=== PATIENT | female | born 1980 | race Hispanic/Latino ===

== ENCOUNTER 2021-08-27 16:24 | Emergency (ER) | payer OTHER, SELFPAY ==
--- NOTE | ~2021-08-27 | CT_ITS ---
EXAMINATION: CT brain wo con EXAM DATE: 08/27/2021 17:06 INDICATION: Right facial tingling TECHNIQUE: Spiral CT of the head was performed without contrast. Axial, coronal and sagittal images were reviewed. The dose-length product (DLP) for this examination was 605.33 mGy-cm. The exposure w as tailored according to patient size, and iterative reconstruction (ASIR) was used as additional dos e reduction technique. There is no prior study for comparison. FINDINGS: There is no acute intraparenchymal hemorrhage. No evidence of intraparenchymal brain mass lesion. No evidence of acute infarction. There is no mass effect or midline shift. The ventricles are normal in size. There are no extra-axial collections. There are no acute calvarial fractures. T he orbits are unremarkable. Soft tissue is unremarkable. The visualized sinuses and mastoid air kristy ls are well aerated. IMPRESSION: 1. No acute intracranial findings. Reviewed, dictated and finalized at location .
[2021-08-27 16:28] VITALS: BP 143/66; PULSE 81; RESP 16; TEMP 36.8; O2SAT 100
[2021-08-27 17:02] LABS: Basophils Percent Auto 0.4 % (0.2-1.2); Eosinophils Absolute Auto 0.1 K/mm3 (0-0.3); Eosinophils Percent Auto 1.6 % (0-4.4); Hematocrit 39.2 % (37.0-47.0); Hemoglobin 12.8 g/dL (12.0-15.0); Immature Granulocyte Absolute 0.03 K/mm3 (0.00-0.031); Immature Granulocyte Percent A 0.4 % (0-0.5); Lymphocytes Absolute Auto 2.09 K/mm3 (0.9-3.2); Lymphocytes Percent Auto 30.5 % (18.3-44.2); Mean Corpuscular HGB Conc 32.7 g/dl (32-36); Mean Corpuscular Hemoglobin 32.1 pg (26-34); Mean Corpuscular Volume 98.2 fl (80-100); Mean Platelet Volume 10.4 fl (7.4-10.4); Monocytes Absolute Auto 0.6 K/mm3 (0.1-0.6); Monocytes Percent Auto 8.3 % (2.6-8.5); Neutrophils Percent Auto 58.8 % (45.5-73.1); Platelet Count Result 204 k/mm3 (150-375); Red Blood Count 3.99 M/mm3 (4.2-5.4); Red Cell Distribution Width 12.8 % (11.5-14.5); White Blood Count 6.9 K/mm3 (4.5-10.0)
[2021-08-27 17:48] LABS: Alanine Aminotransferase 11 U/L (4-35); Albumin Level 4.4 g/dL (3.5-5.1); Alkaline Phosphatase 42 U/L (38-126); Anion Gap 5 mmol/L (8-16); Aspartate Amino Transferase 26 U/L (14-36); Bilirubin,Total 0.8 mg/dL (0.2-1.3); Blood Urea Nitrogen 11 mg/dL (7-17); Carbon Dioxide 27 mmol/L (22-30); Chloride 103 mmol/L (98-107); Estimated CRCL calculation 113 ml/min; Estimated Glomerular Filt Rate > 60; Glucose 105 mg/dL (65-110); Sodium 135 mmol/L (137-145)
[2021-08-27 17:49] LABS: Potassium 3.6 mmol/L (3.4-5.0)
--- NOTE | 2021-08-27 18:14 | ED.GENADULT ---
HPI - General Adult General Chief complaint: Unspecified Stated complaint: neuro symptoms Time Seen by Provider: 08/27/21 16:32 Source: patient Mode of arrival: ambulatory Limitations: no limitations History of Present Illness HPI narrative: 40-year-old female presented to the emergency department for evaluation of multiple complaints. Patient states yesterday she had an episode that was short-lived where she had bilateral facial tingling that also felt like her gums were tingling . Patient denied any associated numbness or facial droop. Patient denied any speech changes or other focal numbness or weakness. Patient states that symptoms were very short lasting but did not give an exact time. Patient states today she has had episodes where she felt like her arms and legs were being pinched from the inside . Patient denies any associated numbness or weakness with these. Patient denies any associated muscle spasm or fasciculations. Patient denies any prior cardiac history for herself. Patient has no prior CVA history. Patient is not taking any medications. Denies taking any new supplements. No prior history of underlying bleeding disorder. Patient feels that her symptoms have improved at this time. Related Data Home Medications Medication Instructions Recorded Confirmed No Home Medications 08/27/21 08/27/21 Allergies Allergy/AdvReac Type Severity Reaction Status Date / Time No Known Allergies Allergy Verified 08/27/21 16:34 Review of Systems Review of Systems: CONSTITUTIONAL: Denies fever, chills, or sweats. EYES: Denies visual changes, redness, or discharge. ENT: Denies rhinorrhea, congestion, sore throat, or otalgia. CARDIOVASCULAR: Denies chest pain, palpitations, or edema. RESPIRATORY: Denies cough or dyspnea. GASTROINTESTINAL: Denies abdominal pain, nausea, vomiting, or diarrhea. GENITOURINARY: Denies dysuria or hematuria. SKIN: Denies rash or itching. MUSCULOSKELETAL: Denies back pain, joint pain, or myalgia. NEUROLOGIC: Denies headache, numbness, or weakness. Bilateral facial tingling PSYCHIATRIC: Denies anxiety or depression. All systems reviewed & are unremarkable except as noted in HPI and below Exam Narrative: APPEARANCE: Well appearing, no pain, no distress, well-nourished. HEAD: normocephalic, atraumatic. EYES: PERRLA/EOMI, conjunctivae clear. NOSE: Normal no drainage NECK: Supple. No adenopathy, no masses. RESPIRATORY: Airway patent, respirations nonlabored. Clear to auscultation bilaterally, no rales, rhonchi, wheezing. CARDIOVASCULAR: Regular rate and rhythm without murmurs rubs or gallops. ABDOMINAL: Soft, nontender, nondistended, normal bowel sounds MUSCULOSKELETAL: Moves all extremities. Strength/ROM intact, No edema, No calf tenderness. NEURO: Alert. Cranial nerves II through XII intact. Good gait. Good coordination. Sensation intact. Normal Romberg. Normal forward and backward tandem gait. No ataxia, no pronator drift. SKIN: Warm, dry. Normal Color Course Course Emergency Course: Initial symptoms were bilateral and did not involve numbness or weakness. Low concern for TIA. Patient has no history of atrial fibrillation, no cardiac history, no history of hypertension or high cholesterol. Patient reported tingling but has denied any focal neuro changes. Unsure of what the underlying etiology of the symptom of feeling pinched from the inside is but patient has a normal electrolyte work-up. No evidence of fasciculation on exam. Patient was updated on the results of her labs and imaging. All questions and concerns were addressed. Patient was encouraged to have close follow-up with her primary care physician. She was also educated on reasons to return to the emergency department. Patient was comfortable with the plan for discharge and follow-up. Vital Signs Vital signs: Vital Signs Temperature 98.3 F 08/27/21 16:28 Pulse Rate 81 08/27/21 16:28 Respiratory Rate 16 08/27/21 1
[2021-08-27 18:46] VITALS: BP 114/71; PULSE 63; RESP 16; O2SAT 100
== END 2021-08-27 18:47 | disposition home or self-care (01) ==
PROVIDERS: Emergency Provider Emergency Medicine
DX: R20.2 Paresthesia of skin (principal)
CPT/HCPCS: 36415; 70450; 80053; 85025; 99284

== ENCOUNTER 2021-10-10 06:40 | Outpatient (CLI) | payer OTHER, SELFPAY ==
--- NOTE | ~2021-10-10 | XR_ITS ---
XR hip LT min 2V DATE: 10/10/2021 07:06 INDICATION: Left hip pain for 2 or 3 weeks TECHNIQUE: AP and lateral views COMPARISON: None FINDINGS: No fracture or dislocation, avascular necrosis or bone destruction. Left hip joint space is well preserved. The pubic symphysis and left sacroiliac joint are intact. IMPRESSION: Negative Reviewed, dictated and finalized at location B. IMPRESSION: Negative
== END 2021-10-10 06:41 | disposition home or self-care (01) ==
LOC: ANHIMG 06:44
PROVIDERS: PCP Physician Assistant; Visit Provider Physician Assistant
DX: M25.552 Pain in left hip (principal)
CPT/HCPCS: 73502

== ENCOUNTER 2021-11-30 15:30 | Outpatient (RCR) | payer OTHER, SELFPAY ==
--- NOTE | 2021-10-26 09:02 | PTOPEVAL ---
PHYSICAL THERAPY INITIAL EVALUATION. Thank you for referring Shreya Corey to [facility].? The patient is scheduled to be seen for therapy? 1x/week for 5 weeks. Please review, sign, date and return this plan of care [place]. I agree with and certify that the following plan of care is medically necessary. Referring Physician Date Attending Provider: Trudi Eller, PA *PT Outpatient Evaluation Start: 10/26/21 Evaluation Information Diagnosis L Hip pain Onset 1 year Subjective Information Pt states initially her hip Query Text:As Reported By Patient/ did not hurt, it was just Family popping. She went to the chiropractor and they were able to stop the popping. Pt states she then felt a bump on the outside of her hip which prompted her to go to the doctor. She states the doctor was not concerned about the bump, it has since been growing still. Pt states work has become more difficult due to the pain in her whole hip. Pt states she can be on her feet for about 4 hours before it really starts to hurt. Pt has been avoiding stairs due to pain. Pain Assessment Self Report Pain Assessment Left Hip(s) Reported Pain Level 2 Pain Description Radiating,Sharp Pain Frequency Acute,Intermittent Lowest Pain Intensity 2 Greatest Pain Intensity 9 Pain Aggravating Factors Bending,Exercise/Activity, Lifting,Stair Climbing,Walking Lower Extremity Range of Motion General Lower Extremity Range of Motion WFL/Left,WFL/Right Gross Lower Extremity Range of Motion Pain free ROM Comments limited hip ext rot yamileth Lower Extremity Muscle Strength Testing Gross Lower Extremity Strength B hip flexion, knee extension, knee flexion grossly 5/5 B glute med 4/5 - increased knee valgus during functional squat Muscle Length Testing Muscle Length Testing Two-Joint Hip Flexor Shortened Muscles Short (R) Iliopsoas,Short (L) Iliopsoas Right Prone Hip Internal Rotator Length 60 Left Prone Hip Internal Rotator Length ( 30 Right Prone Hip External Rotator Length 15 Left Prone Hip External Rotator Length ( 30 Left Hamstring
--- NOTE | 2021-11-09 08:25 | PCPTNOTE ---
Patient called & cancelled scheduled appointment this date due to running late with children and won't be able to make it on time to appointment.
--- NOTE | 2021-11-30 16:03 | PTOPEVAL ---
PHYSICAL THERAPY PROGRESS REPORT AND DISCHARGE SUMMARY. Thank you for referring Shreya Corey to [facility].? The patient is to be discharged from skilled therapy services at this time. Please review, sign, date and return this plan of care [place]. I agree with and certify that the following plan of care is medically necessary. Referring Physician Date Attending Provider: Trudi Eller, PA Evaluation Information Diagnosis L Hip pain Onset 1 year Subjective Information Pt states her pain has been Query Text:As Reported By Patient/ progressively getting better Family since her first visit. She states now she has no pain at all and can complete all of her daily tasks without pain. She reports high pain ratings but it is manageable and she is able to easily work through it. Pt states there is not one single activity that increases her pain, it is just the long days on her feet. Pain Assessment Self Report Pain Assessment Left Hip(s) Reported Pain Level 0 Greatest Pain Intensity 7 Lower Extremity Range of Motion General Lower Extremity Range of Motion WFL/Left,WFL/Right Gross Lower Extremity Range of Motion Pain free ROM Lower Extremity Muscle Strength Testing Gross Lower Extremity Strength B hip flexion, knee extension, knee flexion grossly 5/5 B glute med 4+/5 B hip extension 4/5 Muscle Length Testing Two-Joint Hip Flexor Shortened Muscles Short (R) Iliopsoas,Short (L) Iliopsoas Right Prone Hip Internal Rotator Length 60 Left Prone Hip Internal Rotator Length ( 45 Right Prone Hip External Rotator Length 30 Left Prone Hip External Rotator Length ( 45 Left Hamstring Length -25 Right Hamstring Length -35 Posture Posture Evaluation View Anterior Head/C-Spine Posture Neutral Position Thoracic Spine Posture Neutral Lumbar Spine Posture Neutral Hip Posture (L) Neutral,(R) Neutral Palpation Assessment Palpation no tenderness Gait Assessment Other Gait Observations no notable deviations Safety Assessment Factors Affecting Safety No Concerns General Exercise General Exercises Exercise Description - reviewed and consolidated Query Text:Record Sets, Reps, HEP Resistance, and Position - encourage frequent hamstring and hip ext rot stretching
== END 2021-12-01 11:17 | disposition home or self-care (01) ==
LOC: ANHPT 15:30
PROVIDERS: PCP Physician Assistant; Visit Provider Physician Assistant
DX: M25.552 Pain in left hip (principal)
CPT/HCPCS: 97110; 97140; 97161

== ENCOUNTER 2023-07-03 08:00 | Outpatient (RCR) | payer OTHER, SELFPAY ==
--- NOTE | 2023-06-05 09:18 | PTOPEVAL1 ---
Assessment and note entered by Kalpesh Gunter, PT Evaluation Information Assessment Status Evaluation Diagnosis Greater trochanteric bursitis, Bilhip bursitis Onset December 2022 Subjective Information Reports that she first noticed when running. Transitioned to having knee pain as well. She was woking out consistently prior to the episode of this happening. She will get increased pain when running or doing stairs. She works as a software administrator. She was having trouble sleeping as she could not put pressure on it, but it has improved to the point that she is sleeping a little better. Reported Pain Level Pain Score 0: Self Report Assessment PT Clinical Summary Patient presents with signs and symptoms consistent with trochanteric bursitis. She demonstrate poor hip mobility with lateral and posterior chain weakness. Will benefit from skilled therapy to improve hip mobility and strength with adjustments to gait cycle and body mechanics as needed. Plan of Care Interventions Electrical Stimulation,Gait Training,Hot Pack/Cold Pack,Manual Therapy,Neuro Re-education, Therapeutic Activities,Therapeutic Exercise PT Services Indicated Yes Treatment Frequency and 2x/week for 8 visits Duration These treatments will address the objective and functional deficits as defined above. The patient will be advanced safely and appropriately in order for the patient to progress towards his/her prior level of function. Additional exercises will be introduced and as well as a comprehensive home exercise program upon discharge, if needed, ?to ensure carryover of functional gains achieved in the clinic. This treatment plan has been reviewed and agreement upon by the patient.
--- NOTE | 2023-06-05 09:18 | OPREHPOC ---
Outpatient Therapy Plan of Care This is a Multidisciplinary Plan of Care that may contain components documented by all disciplines (PT, OT, and ST.) PT Problem 1 PT Problem #1 Knowledge Deficit PT Goal 1 Goal Patient will be independent with hip mobility and core strength HEP Target Visit 4 PT Problem 2 PT Problem #2 Pain PT Goal 1 Goal Report no paion greater than 1/10 with ambulation and squatting activity Target Visit 8 PT Problem 3 PT Problem #3 Impaired Range of Motion PT Goal 1 Goal Improve yamileth Hamstring flexibility to -20 degrees to reduce posterior chain pull. Target Visit 8 PT Goal 2 Goal Demonstrate minimal piriformis restriction bilaterally to reduce hip tension with activity. Target Visit 8 PT Problem 4 PT Problem #4 Impaired Strength PT Goal 1 Goal Improve yamileth hip abduction strength to 4/5 to improve lateral stability with gait and ADLs Target Visit 8 PT Problem 5 PT Problem #5 Impaired Gait PT Goal 1 Goal Ambulate with even stride length bilaterally Target Visit 8
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
--- NOTE | 2023-07-03 08:50 | PTOPDC ---
Assessment and note entered by Kalpesh Gunter, PT Evaluation Information Assessment Status Discharge Diagnosis Greater trochanteric bursitis, Fredy hip bursitis Onset December 2022 Subjective Information Reports that she feels she is overall doing a lot better. She has had very little limitation with home activity and has been performing HEP with no concerns. Reported Pain Level Pain Score 1: Self Report Assessment PT Clinical Summary Patient met all goals for therapy and is suitable for discharge at this time. Discussed heavily body mechanics and footwear and patient is in agreement that this needs to be addressed. She has no questions at this time and is requesting discharge. Plan of Care PT Services Indicated Yes
--- NOTE | 2023-07-03 08:50 | OPREHPOC ---
Outpatient Therapy Plan of Care This is a Multidisciplinary Plan of Care that may contain components documented by all disciplines (PT, OT, and ST.) PT Problem 1 PT Problem #1 Knowledge Deficit PT Goal 1 Goal Patient will be independent with hip mobility and core strength HEP Target Visit 4 Progress Met PT Problem 2 PT Problem #2 Pain PT Goal 1 Goal Report no pain greater than 1/10 with ambulation and squatting activity Target Visit 8 Progress Met PT Problem 3 PT Problem #3 Impaired Range of Motion PT Goal 1 Goal Improve yamileth Hamstring flexibility to -20 degrees to reduce posterior chain pull. Target Visit 8 Progress Met PT Goal 2 Goal Demonstrate minimal piriformis restriction bilaterally to reduce hip tension with activity. Target Visit 8 Progress Met PT Problem 4 PT Problem #4 Impaired Strength PT Goal 1 Goal Improve yamileth hip abduction strength to 4/5 to improve lateral stability with gait and ADLs Target Visit 8 Progress Met PT Problem 5 PT Problem #5 Impaired Gait PT Goal 1 Goal Ambulate with even stride length bilaterally Target Visit 8 Progress Met
== END 2023-07-03 09:31 | disposition home or self-care (01) ==
LOC: ANHGOSHPT 08:00
PROVIDERS: PCP Physician Assistant; Visit Provider Nurse Practitioner Family
DX: M25.559 Pain in unspecified hip (principal); M70.61 Trochanteric bursitis, right hip; M70.62 Trochanteric bursitis, left hip
CPT/HCPCS: 97014; 97110; 97161; 97530; G0283

== ENCOUNTER 2023-07-31 15:50 | Outpatient (CLI) | payer OTHER, SELFPAY ==
--- NOTE | ~2023-07-31 | MM_ITS ---
EXAMINATION: MM screening jayna BI w vinicius HISTORY: Screening TECHNIQUE: Craniocaudal and mediolateral oblique 3-D tomosynthesis images were obtained and synthetic 2-D images were generated. CAD analysis was submitted and interpreted. COMPARISON: No prior mammogram is available for comparison at this institution. BREAST PARENCHYMAL COMPOSITION: Dense: The breasts are heterogeneously dense, which may obscure small masses FINDINGS: There are scattered bilateral nodular asymmetries in the right breast which are obscured by dense fibroglandular tissue. There is a focal asymmetry in the lower outer quadrant of the left doug st anteriorly. IMPRESSION: 1. Bilateral breast asymmetries. 2. Additional mammographic views and possible breast ultrasound are recommended. BI-RADS Category 0: Incomplete: Needs additional imaging evaluation. Reviewed, dictated and finalized at location A. FABRICATOR IMPRESSION: 1. Bilateral breast asymmetries. 2. Additional mammographic views and possible breast ultrasound are recommended . BI-RADS Category 0: Incomplete: Needs additional imaging evaluation.
== END 2023-07-31 15:51 | disposition home or self-care (01) ==
PROVIDERS: PCP Physician Assistant; Visit Provider Nurse Practitioner Family
DX: Z12.31 Encounter for screening mammogram for malignant neoplasm of breast (principal); R92.8 Other abnormal and inconclusive findings on diagnostic imaging of breast
CPT/HCPCS: 77063; 77067

== ENCOUNTER 2023-09-19 12:45 | Outpatient (CLI) | payer OTHER, SELFPAY ==
--- NOTE | ~2023-09-19 | MMUS_ITS ---
EXAMINATION: MM diagnostic jayna BI w vinicius, US breast BI complete HISTORY: Bilateral breast asymmetries seen on prior examination. TECHNIQUE: Additional 3-D tomosynthesis images of the breasts were performed and synthetic 2-D images were generated. CAD analysis was submitted and interpreted. High resolution complete bilateral breas t ultrasound was performed. COMPARISON: 07/31/2023 BREAST PARENCHYMAL COMPOSITION: Dense: The breasts are extremely dense, which lowers the sensitivity of mammography. FINDINGS: MAMMOGRAPHIC FINDINGS: There are no suspicious masses, calcifications or architectural distortion in either breast to sugges t malignancy. ULTRASOUND: Complete bilateral US of all 4 quadrants of the breasts and retroareolar region was reviewed. Right breast: There are multiple cysts of the right breast, largest cluster of cysts measures 1.9 cm at 10:00, 2 cm from the nipple. No suspicious masses in the right breast to suggest malignancy. Left breast: There are multiple simple and complicated cyst of the left breast. At 4:00 near the nipp le there is an oval hypoechoic mass which is partially cystic, parallel orientation, no internal vasc ularity or posterior features measuring 1.5 x 1.2 x 0.7 cm. At 11:00, 2.5 cm from the nipple there is an oval hypoechoic 1.4 cm mass with parallel orientation, no significant posterior features and no i nternal vascularity, likely benign. At 12:00 near the nipple there is an oval circumscribed parallel oriented hypoechoic mass with no posterior features or internal vascularity measuring 10 mm, likely b enign. IMPRESSION: 1. Probable benign left breast masses by ultrasound. No evidence for malignancy in the right breast. 2. Recommend 6 month follow-up Limited left breast ultrasound. BI-RADS category 3, probably benign findings. Reviewed, dictated and finalized at location B. IMPRESSION: 1. Probable benign left breast masses by ultrasound. No evidence for malignancy in the right breast. 2. Recommend 6 month follow-up Limited left breast ultrasound. BI-RADS category 3, probably benign findings.
== END 2023-09-19 12:46 | disposition home or self-care (01) ==
LOC: ANHIMG 12:48
PROVIDERS: PCP Physician Assistant; Visit Provider Nurse Practitioner Family
DX: R92.8 Other abnormal and inconclusive findings on diagnostic imaging of breast (principal)
CPT/HCPCS: 76641; 77062; 77066; G0279

== ENCOUNTER 2023-10-04 16:35 | Outpatient (CLI) | payer OTHER, SELFPAY ==
--- NOTE | ~2023-10-04 | MR_ITS ---
EXAMINATION: MR hand LT wo/w con DATE: 10/04/2023 17:42 INDICATION: Left hand pain. TECHNIQUE: Magnetic resonance imaging (MRI) of the left hand was performed without and with 13 mL Mul tiHance intravenous contrast. COMPARISON: None FINDINGS: Bone alignment is normal. No fracture. There is mild osteoarthritis of first carpometacarpa l joint. The flexor and extensor tendons are normal. The pulleys are normal. There is an 8 x 9 x 9 mm ganglion cyst involving the flexor tendons at neck of third proximal phalanx. There is a 4 mm gangli on cyst adjacent to head of third metacarpal at the attachment of radial collateral ligament. IMPRESSION: 1. 9 mm ganglion cyst involving the flexor tendons at the neck of third proximal phalanx. 2. 4 mm ganglion cyst adjacent to head of third metacarpal at the attachment of radial collateral lig ament. Reviewed, dictated and finalized at location E. IMPRESSION: 1. 9 mm ganglion cyst involving the flexor tendons at the neck of third proxima l phalanx. 2. 4 mm ganglion cyst adjacent to head of third metacarpal at the attachment of radial collateral ligament.
== END 2023-10-04 16:36 | disposition home or self-care (01) ==
LOC: ANHIMG 16:35
PROVIDERS: PCP Physician Assistant
DX: M67.442 Ganglion, left hand (principal)
CPT/HCPCS: 73220; A9577

== ENCOUNTER 2024-10-13 08:03 | Outpatient (CLI) | payer OTHER, SELFPAY ==
--- NOTE | ~2024-10-13 | MM_ITS ---
EXAMINATION: MM screening jayna BI w vinicius HISTORY: Screening mammogram TECHNIQUE: Craniocaudal and mediolateral oblique 3-D tomosynthesis images were obtained and synthetic 2-D images were generated. CAD analysis was submitted and interpreted. COMPARISON: 07/31/2023 BREAST PARENCHYMAL COMPOSITION:Dense: The breasts are extremely dense, which lowers the sensitivity o f mammography. FINDINGS: Questionable developing asymmetries in the bilateral breasts on CC views, at the central po sterior right breast and inner left breast. Stable mixed soft tissue density and fat attenuation mass at the outer left breast, compatible with hamartoma. No suspicious metabolic ossifications. IMPRESSION: Bilateral breast asymmetries, as above. Spot compression views and possibly ultrasound are recommend ed for further evaluation. BI-RADS Category 0: Incomplete: Needs additional imaging evaluation. Reviewed, dictated and finalized at location . IMPRESSION: Bilateral breast asymmetries, as above. Spot compression views and possibly ul trasound are recommended for further evaluation. BI-RADS Category 0: Incomplete: Needs additional imaging evaluation.
--- OUTSIDE RECORDS SUMMARY | 2024-10-13 08:07 | XMS_ITS | Clinical Summary ---
Author Organization [address] Address [address] [place] [id number] Care Team Providers Care School Bus Driver/Mechanic Name Role Phone Mirtha Boyd NP Primary Care Provider Allergies No known active allergies Medications plecanatide 3 mg tablet Take 1 tablet (3 mg total) by mouth daily 30 tablet 11 08/14/2024 Active Active Problems Problem Noted Date Diagnosed Date Chronic idiopathic constipation 01/16/2023 Assessment & Plan (08/14/2024 3:06 PM CDT): Chronic complaints of constipation which was previously treated with Trulance 3 mg daily. She has since been now without her medication for roughly 3 months and if complaints of constipation in which he will not have a bowel movement for multiple days as well as abdominal bloating has returned. She has trialed and failed zfpv-qko-kfamxaf medication including stool softener, MiraLax, and fiber. -Trulance 3 mg daily prescribed -Discussed colonoscopy Assessment & Plan (01/16/2023 9:46 AM CDT): Doing better now. She is on Trulance 3 mg daily. Encouraged to continue Trulance. Pain of upper abdomen 01/16/2023 Assessment & Plan (01/16/2023 9:47 AM CDT): New onset. Differential diagnosis includes gastroesophageal reflux disease, peptic ulcer disease, symptomatic cholelithiasis or pancreatitis. Will check CBC, CMP, amylase. Obtain hepatobiliary scan. Schedule for EGD. The risks, benefits and alternative to an esophagogastroduodenoscopy were discussed with the patient and the patient verbalized understanding. The risks included perforation, bleeding, infection and anesthetic complications. Other constipation 08/31/2022 Overview (08/31/2022): Linzess trial GI consult for possible inflammatory origin per CT Assessment & Plan (08/31/2022 4:38 PM CDT): Worsening constipation. Noted on CT. Her insurance did not approve Linzess but she is having good results with MiraLax. Encouraged to take MiraLax 17 g daily. Advised to call me if she is not having good results with MiraLax. Abdominal pain 08/31/2022 Overview (08/31/2022): IBS-C related? GI to consult Assessment & Plan (08/31/2022 4:37 PM CDT): Right upper quadrant abdominal pain. May be due to gallbladder disease or IBS - C. Advised to take MiraLax daily. Obtain right upper quadrant ultrasound. Gallstones 08/31/2022 Assessment & Plan (01/16/2023 9:46 AM CDT): Ultrasound did reveal gallstones. She now complains of intermittent postprandial upper abdominal pain. Currently without tenderness. She may be developing symptomatic cholelithiasis. Will obtain CBC, CMP and amylase. Obtain hepatobiliary scan. Assessment & Plan (08/31/2022 4:36 PM CDT): Incidental finding on CT. She has right upper quadrant pain with mild tenderness. I reviewed her recent liver function tests and CBC that were normal. Will repeat CMP, CBC. Obtain ultrasound of the right upper quadrant further evaluation of the gallbladder. Abnormal finding on GI tract imaging 08/31/2022 Assessment & Plan (08/31/2022 4:36 PM CDT): CT scan revealed thick-walled small bowel loops suggestive of inflammatory or infectious enteritis. She has no symptoms except occasional mild right upper quadrant abdominal pain. Will order small bowel series for further evaluation. Check CRP. Vitamin D deficiency 05/10/2022 Encounters Date Type Department Care Team Description 08/14/2024 2:30 PM CDT Office Visit [facility] Gastroenterology at [address] [place] [phone] Sofia Watkins NP Chronic idiopathic constipation 07/25/2024 9:00 AM CLUTCH INSPECTOR Lab [facility] Outpatient Lab at [address] [phone] Annual physical exam (Primary Dx) 07/25/2024 8:54 AM CLUTCH INSPECTOR - 07/25/2024 11:59 PM CLUTCH INSPECTOR Hospital Encounter [address] [address] Lipid screening Discharge Disposition: Discharge to home or self care 07/25/2024 8:30 AM CLUTCH INSPECTOR Office Visit [facility] Primary Care at [address] [phone] Mirtha Boyd NP Annual physical exam (Primary Dx); Cervical cancer screening; Breast cancer screening by mammogram; Lipid screening 07/25/2024 Telephone [facility] [address] [facility] [address] [place] [address] Jamila Allen 07/25/2024 Results Follow-Up [facility] Primary Care at [address] [address] Mirtha Boyd NP from Last 3 Months Immunizations Immunization Administration Dates Next Due Influenza, Quadrivalent, Spl it, Preservative Free, Intramuscular 05/30/2023,05/10/2022 Influenza, Trivalent, Preser vative Free, Intramuscular 04/23/2024 Influenza, Unspecified 06/04/2023(Deferr ed: Patient Refused),05/10/2021 Surgical History Surgery Date Site/Laterality Comments NO PAST SURGERIES UPPER GASTROINTESTINAL ENDOSCOPY 03/09/2023 Medical History Medical History Date Comments No pertinent past medical history Social History Tobacco Use Types Packs/Day Years Used Date Smoking Tobacco: Never Passive Smoke Exposure: Never Smokeless Tobacco: Never AUDIT-C Answer Date Recorded Q1: How often do you have a drink containing alc ohol? Never 03/09/2023 Average Number of Drinks Not on file 023 Frequency of Binge Drinking Not on file 11/2022 PHQ-2 Answer Date Recorded PHQ-2 Total Score (If total score is 3 or more points, staff should administer the PHQ-9) 0 07/25/2024 Personal Safety Answer Date Recorded Have you ever been in or are you currently in a harmful physical or emotional relationship or is someone making you feel afraid or unsafe? Denies 03/09/2023 Comments No Sex and Gender Information Value Date Recorded Sex Assigned at Not on file Legal Sex Female 8:36 PM CLUTCH INSPECTOR Gender Identity Not on file Sexual Orientation Not on file Obstetrics History Last Filed Vital Signs Vital Sign Reading Time Taken Comments Blood Pressure 107/66 08/14/2024 2:30 PM CDT Pulse 67 08/14/2024 2:30 PM CDT Temperature 36.7 C (98 F) 07/25/2024 8:25 AM CLUTCH INSPECTOR Respiratory Rate 18 08/10/2023 6:00 PM CLUTCH INSPECTOR Oxygen Saturation 99% 07/25/2024 8:25 AM CLUTCH INSPECTOR Inhaled Oxygen Concentration - - Weight 56.1 kg (123 lb 10.9 oz) 08/14/2024 2:30 PM CDT Height 165.1 cm (5' 5 ) 08/14/2024 2:3 0 PM CDT Body Mass Index 20.58 08/14/2024 2:30 PM CDT Plan of Treatment Health Maintenance Due Date Last Done Comments Cervical Cancer Screening 1981 Hepatitis C Screening 1981 DTaP/Tdap/Td Vaccine (1 - Tdap) 1992 Hepatitis B Screening 09/12/1999 Covid-19 Vaccine ( season) 2024 08/07/2023, 06/24/2021, 09/06/2020 Breast Cancer Screening-Mammogram 09/18/2024 09/19/2023, 07/31/2023 Depression Screening 07/25/2025 07/25/2024, 04/23/2024, 05/30/2023, Additional history exists Regular Well Visit/Exam 18-64 07/25/2025 07/25/2024, 05/30/2023 Influenza Vaccine Completed 04/23/2024, , 05/10/2022, Additional history exists HPV Vaccines Aged Out No longer eligi ble based on patient's age to complete this topic Pneumococcal vaccine <65 Aged Out No longer eligible based on patient's age to complete this topic Varicella Vaccines Discontinued Procedures Procedure Name Priority Date/Time Associated Diagnosis Comments LIPID PANEL Routine 07/25/2024 8:54 AM CLUTCH INSPECTOR Lipid screening DIAGNOSTIC MAMMOGRAM BILATERAL W JORDON Schedule Routine, Read Routine (OP Routine) 09/19/2023 Abnormal mammogram of left breast from Last 3 Months or Most Recently Relevant to Health Maintenance Results * Lipid panel (07/25/2024 8:54 AM CLUTCH INSPECTOR) Cholesterol 189 30 - 199 mg/dL Comment: Interpretive Data Ages < or = 19 years Acceptable: <170 mg/dL Borderline high: 170-199 mg/dL High: >or= 200 mg/dL Ages > or = 20 years Desirable: <200 mg/dL Borderline high: 200-239 mg/dL High: >or= 240 mg/dL Literature References: 1. Expert Panel on Integrated Guidelines for Cardiovascular Health and Risk Reduction in Children and Adolescents. Pediatrics 2011;128:S213 2. NCEP Expert Panel. Circulation 2004;110:227 Current Interpretive Data was last revised on 2018. Triglycerides 95 <=149 mg/dL TONY Comment: Interpretive Data Ages < or = 9 years Acceptable: <75 mg/dL Borderline high: 75-99 mg/dL High: >or= 100 mg/dL Ages 10 to 20 years Acceptable: <90 mg/dL Borderline high: 90-129 mg/dL High: >or= 130 mg/dL Ages > or = 20 years Desirable: <150 mg/dL Borderline high: 150-199 mg/dL High: 200-499 mg/dL Very high: >or= 499 mg/dL Literature References: 1. Expert Panel on Integrated Guidelines for Cardiovascular Health and Risk Reduction in Children and Adolescents. Pediatrics 2011;128:S213 2. NCEP Expert Panel. Circulation 2004;110:227 Current Interpretive Data was last revised on 2018. HDL 66 >=40 mg/dL TONY METZGER Comment: Interpretive Data Ages < or = 19 years Acceptable: >45 mg/dL Borderline low: 40-45 mg/dL Low: <40 mg/dL Ages > or = 20 years Desirable: >or= 60 mg/dL Low: <40 mg/dL Literature References: 1. Expert Panel on Integrated Guidelines for Cardiovascular Health and Risk Reduction in Children and Adolescents. Pediatrics 2011;128:S213 2. NCEP Expert Panel. Circulation 2004;110:227 Current Interpretive Data was last revised on 2018. LDL, calculated 106 <=129 mg/dL TONY METZGER Comment: Interpretive Data Ages < or = 19 years Acceptable: <110 mg/dL Borderline high: 110-129 mg/dL High: >or= 130 mg/dL Ages > or = 20 years Optimal: <100 mg/dL Near optimal: 100-129 mg/dL Borderline high: 130-159 mg/dL High: >160 mg/dL Calculated using the Justice LDL-C estimating equation. This equation was implemented on 2024. Prior to this date LDL-C was estimated using the Friedewald equation. Literature References: 1. Expert Panel on Integrated Guidelines for Cardiovascular Health and Risk Reduction in Children and Adolescents. Pediatrics 2011;128:S213 2. NCEP Expert Panel. Circulation 2004;110:227 3. Justice Limon et al. CHIQUITA Cardiol. 2020 October 02;5(5):540-548. doi: 10.1001/jamacardio.2020.0013 Current Interpretive Data was last revised on 2024. Non-HDL Cholesterol 123 mg/dL TONY METZGER Comment: Interpretive Data Ages < or = 19 years Acceptable: <120 mg/dL Borderline high: 120-144 mg/dL High: >145 mg/dL Ages > or = 20 years When triglycerides are >200 mg/dL, Non-HDL cholesterol is a secondary target of therapy with treatment goals that are 30 mg/dL greater than the LDL cholesterol target. Literature References: 1. Expert Panel on Integrated Guidelines for Cardiovascular Health and Risk Reduction in Children and Adolescents. Pediatrics 2011;128:S213 2. NCEP Expert Panel. Circulation 2004;110:227 Current Interpretive Data was last revised on 2018. Chol/HDL ratio 3 TONY Blood 07/25/2024 8:54 AM CLUTCH INSPECTOR 07/25/2024 3:22 PM CLUTCH INSPECTOR Mirtha Boyd NP LAB BLOOD ORDERABLES Final Resul t TONY [id number] [facility] Department [place] [address] * Diagnostic Mammogram Bilateral W Jordon (09/19/2023) Anatomical Region Laterality Modality Breast Bilateral Mammography Mirtha Boyd NP IMG MAMMO PROCEDURES Final Resul t from Last 3 Months or Most Recently Relevant to Health Maintenance Insurance [facility] Care Teams School Bus Driver/Mechanic Relationship Specialty Start Date End Date Mirtha Boyd NP PCP - General Family Medicine 05/02/22
--- OUTSIDE RECORDS SUMMARY | 2024-10-13 08:07 | XMS_ITS | Clinical Summary ---
Author Organization [facility] Address [address] [address] Care Team Providers Care Emt Intermediate Name Role Phone Unavailable Primary Care Provider Unavailabl e Source Comments [facility],non-owned Affiliates and Associated Physician Practices is amultiple site organization consisting of ambulatory clinics and hospital sitesin [place], [place], [place] and [place]. This disclosure is being madepursuant to the Care Everywhere program and may not contain all information available regarding this patient. Last updated 18.[facility] [employer] Social History Tobacco Use Types Packs/Day Years Used Date Smoking Tobacco: Never Assessed Comments Unknown Sex and Gender Information Value Date Recorded Sex Assigned at Not on file Legal Sex Female 12:10 AM FILM MASKER Gender Identity Not on file Sexual Orientation Not on file Plan of Treatment Health Maintenance Due Date Last Done Comments LIPID TESTING 1981 MAMMOGRAM 1981 HIV SCREENING 1996 HEPATITIS C SCREENING 09/07/1999 DTAP/TDAP/TD VACCINES (1 - Tdap) 2000 HEPATITIS B VACCINE (1 of 3 - 19+ 3-dose series) 2000 COVID-19 VACCINE ( - 2023-2 5 season) 2024 DEPRESSION SCREENING 06/04/2024 INFLUENZA VACCINE (Season Ended) 2025 ZOSTER VACCINE (1 of 2) 09/12/2031 HIB VACCINE Aged Out No longer eligi ble based on patient's age to complete this topic HPV VACCINE Aged Out No longer eligi ble based on patient's age to complete this topic MENINGOCOCCAL (Group B) VACC INE SHARED DECISION-MAKING Aged Out No longer eligibl e based on patient's age to complete this topic MENINGOCOCCAL GROUPS A/C/Y/W VACCINE Aged Out No longer eligible b ased on patient's age to complete this topic PNEUMOCOCCAL VACCINE Aged Out No long er eligible based on patient's age to complete this topic
--- OUTSIDE RECORDS SUMMARY | 2024-10-13 08:07 | XMS_ITS | Referral Summary ---
Author Organization [address] Address [address] [place] [phone] Care Team Providers Care House Worker Name Role Phone Mirtha Boyd NP Primary Care Provider [phone] Encounters Date Type Department Care Team Description 08/14/2024 2:30 PM CDT Office Visit [facility] Gastroenterology at [address] [place] [address] Sofia Watkins NP Chronic idiopathic constipation 07/25/2024 Telephone [facility] [address] [place] [address] [address] [place] [address] Jamila Allen 07/25/2024 Results Follow-Up [facility] Primary Care at [address] [phone] Mirtha Boyd NP 07/25/2024 8:54 AM FURNACE OPERATOR - 07/25/2024 11:59 PM FURNACE OPERATOR Hospital Encounter [address] [address] Lipid screening Discharge Disposition: Discharge to home or self care 07/25/2024 9:00 AM FURNACE OPERATOR Lab [facility] Outpatient Lab at [address] [address] Annual physical exam (Primary Dx) 07/25/2024 8:30 AM FURNACE OPERATOR Office Visit [facility] Primary Care at [address] [phone] Mirtha Boyd NP Annual physical exam (Primary Dx); Cervical cancer screening; Breast cancer screening by mammogram; Lipid screening from Last 3 Months Allergies No known active allergies Medications plecanatide [...] has returned. She has trialed and failed ioas-idh-sxfivkt medication including stool softener, MiraLax, and fiber. [...] evaluation. Check CRP. Vitamin D deficiency 05/10/2022 Immunizations Immunization Administration Dates Next Due Influenza, Quadrivalent, Spl it, Preservative Free, Intramuscular 05/30/2023,05/10/2022 Influenza, Trivalent, Preser vative Free, Intramuscular 04/23/2024 Influenza, Unspecified 06/04/2023(Deferr ed: Patient Refused),05/10/2021 Social History Tobacco Use Types Packs/Day Years [...] on file Legal Sex Female 8:36 PM FURNACE OPERATOR Gender Identity Not on file Sexual Orientation Not on file Last Filed Vital Signs Vital Sign Reading Time Taken Comments Blood Pressure 107/66 08/14/2024 2:30 PM CDT Pulse 67 08/14/2024 2:30 PM CDT Temperature 36.7 C (98 F) 07/25/2024 8:25 AM FURNACE OPERATOR Respiratory Rate 18 08/10/2023 6:00 PM FURNACE OPERATOR Oxygen Saturation 99% 07/25/2024 8:25 AM FURNACE OPERATOR Inhaled Oxygen Concentration - - Weight 56.1 kg (123 lb 10.9 oz) 08/14/2024 2:30 PM CDT Height 165.1 cm (5' 5 ) 08/14/2024 2:30 PM CDT Body Mass Index 20.58 08/14/2024 2:30 PM CDT Plan of Treatment Not on file Procedures Procedure Name Priority Date/Time Associated Diagnosis Comments LIPID PANEL Routine 07/25/2024 8:54 AM FURNACE OPERATOR Lipid screening DIAGNOSTIC MAMMOGRAM BILATERAL W JORDON Schedule Routine, Read Routine (OP Routine) 09/19/2023 Abnormal mammogram of left breast from Last 3 Months or Most Recently Relevant to Health Maintenance Results * Lipid panel (07/25/2024 8:54 AM FURNACE OPERATOR) Cholesterol 189 30 - 199 mg/dL Comment: [...] Pediatrics 2011;128:S213 2. NCEP Expert Panel. Circulation 2003;110:227 Current Interpretive Data was last revised on 2018. HDL 66 >=40 mg/dL TONY Comment: Interpretive Data Ages < or = 19 years Acceptable: >45 mg/dL Borderline low: 40-45 mg/dL Low: <40 mg/dL Ages > or = 20 years Desirable: >or= 60 mg/dL Low: <40 mg/dL Literature References: 1. Expert Panel on Integrated Guidelines for Cardiovascular Health and Risk Reduction in Children and Adolescents. Pediatrics 2011;128:S213 2. NCEP Expert Panel. Circulation 2003;110:227 Current Interpretive Data was last revised on 2018. LDL, calculated 106 <=129 mg/dL TONY Comment: Interpretive Data Ages < [...] 3. Justice Limon et al. CHIQUITA Cardiol. 2019October 02;5(5):540549. doi: 10.1001/jamacardio.2020.0013 Current Interpretive Data was last [...] revised on 2018. Chol/HDL ratio 3 TONY METZGER Blood 07/25/2024 8:54 AM FURNACE OPERATOR 07/25/2024 3:22 PM FURNACE OPERATOR us Mirtha Boyd NP LAB BLOOD ORDERABLES Final Resul t TONY [id number] [place] Department of Laboratories [place] [id number] * Diagnostic Mammogram Bilateral W Jordon (09/19/2023) Anatomical Region Laterality Modality Breast Bilateral Mammography us Mirtha Boyd NP IMG MAMMO PROCEDURES Final Resul t from Last 3 Months or Most Recently Relevant to Health Maintenance Insurance [facility] Care Teams House Worker Relationship Specialty Start Date End Date Mirtha Boyd NP PCP - General Family Medicine 05/02/22
== END 2024-10-13 08:04 | disposition home or self-care (01) ==
LOC: ANHIMG 08:05
PROVIDERS: PCP Physician Assistant; Visit Provider Nurse Practitioner Family
DX: Z12.31 Encounter for screening mammogram for malignant neoplasm of breast (principal); R92.8 Other abnormal and inconclusive findings on diagnostic imaging of breast
CPT/HCPCS: 77063; 77067

== ENCOUNTER 2024-12-01 13:33 | Outpatient (CLI) | payer OTHER, SELFPAY ==
--- NOTE | ~2024-12-01 | MM_ITS ---
EXAMINATION: MM diagnostic jayna BI w vinicius HISTORY: Bilateral breast asymmetries TECHNIQUE: Additional 3-D tomosynthesis images of the breasts were performed and synthetic 2-D images were generated. CAD analysis was submitted and interpreted. COMPARISON: 10/13/2024,07/31/2023 BREAST PARENCHYMAL COMPOSITION:Dense: The breasts are extremely dense, which lowers the sensitivity o f mammography. FINDINGS: Bilateral asymmetries efface with spot compression. No persistent mass lesion or distortion seen. No suspicious microcalcification. IMPRESSION: No mammographic evidence for malignancy. BI-RADS Category 1: Negative Reviewed, dictated and finalized at location .
--- OUTSIDE RECORDS SUMMARY | 2024-12-01 13:54 | XMS_ITS | Encounter Summary ---
Author Organization [facility] Address [address] [place] [address] Care Team Providers Care Assembler Gold Frame Name Role Phone Mirtha Boyd NP Primary Care Provider [phone] Reason for Referral * Diagnostic Imaging (Routine) - Authorized Specialty Diagnoses / Procedures Referred By Contтатьяна t Referred To Contact Diagnoses Abnormal mammogram of both breasts Procedures Diagnostic Mammogram Bilateral W Chaim Mirtha Boyd NP [address] [facility] [address] [place] [address] Phone: tel: fax: [address] [place] [phone] Phone: tel: fax: Referral ID Status Reason Start Date Expiration Date V isits Requested Visits Authorized [id number] Authorized 10/13/2024 11/12/2025 1 1 * Diagnostic Imaging (Routine) - Authorized Specialty Diagnoses / Procedures Referred By Contac t Referred To Contact Diagnoses Abnormal mammogram of both breasts Procedures US Breast Bilateral Limited Mirtha Boyd NP [address] [facility] [address] [place] [address] Phone: tel: fax: [address] [address] Phone: tel: fax: Referral ID Status Reason Start Date Expiration Date V isits Requested Visits Authorized [id number] Authorized 10/13/2024 11/12/2025 1 1 Encounter Details Date Type Department Care Team (Late st Contact Info) Description 10/13/2024 Results Follow-Up [facility] Primary Care at [address] [address] Mirtha Boyd NP [address] [place] [address] [address] [place] [address] HM MAMMOGRAPHY Social History Tobacco Use Types Packs/Day Years [...] on file Legal Sex Female 8:36 PM FUNERAL DIRECTOR/EMBALMER/OWNER Gender Identity Not on file Sexual Orientation Not on file documented as of this encounter Plan of Treatment Scheduled Orders Name Type Priority Associated Diagnoses Orde r Schedule US Breast Bilateral Limited Imaging Schedule Routine, Read Routine (OP Routine) Abnormal mammogram of both breasts Expected: 10/13/2024, Expires: 10/13/2025 Diagnostic Mammogram Bilateral W Chaim Imaging Schedule Routine, Read Routine (OP Routine) Abnormal mammogram of both breasts Expected: 10/13/2024, Expires: 12/13/2025 documented as of this encounter Visit Diagnoses Diagnosis Abnormal mammogram of both breasts- Primary documented in this encounter Care Teams Assembler Gold Frame Relationship Specialty Start Date End Date Mirtha Boyd NP PCP - General Family Medicine 05/02/22 documented as of this encounter
--- OUTSIDE RECORDS SUMMARY | 2024-12-01 13:54 | XMS_ITS | Clinical Summary ---
Author Organization [facility] Address [address] [place] [id number] Care Team Providers Care Nutrition Services Manager Name Role Phone Mirtha Boyd NP Primary Care Provider [phone] Allergies No known active allergies Medications plecanatide [...] has returned. She has trialed and failed [id number] medication including stool softener, MiraLax, and fiber. [...] Encounters Date Type Department Care Team Description 11/04/2024 Orders Only [facility] Primary Care at [address] [id number] Mirtha Boyd NP Spider veins of both lower extremities (Primary Dx) 10/31/2024 Telephone [facility] Primary Care at [address] [phone] Mirtha Boyd NP Recommendation Request (/) 10/13/2024 Results Follow-Up [facility] Primary Care at [address] [phone] Mirtha Boyd NP HM MAMMOGRAPHY from Last 3 Months Immunizations Immunization Administration [...] on file Legal Sex Female 8:36 PM INBOUND SALES ADVISOR Gender Identity Not on file Sexual Orientation Not on file Obstetrics History Last Filed Vital Signs Vital Sign Reading Time Taken Comments Blood Pressure 107/66 08/14/2024 2:30 PM CDT Pulse 67 08/14/2024 2:30 PM CDT Temperature 36.7 C (98 F) 07/25/2024 8:25 AM INBOUND SALES ADVISOR Respiratory Rate 18 08/10/2023 6:00 PM INBOUND SALES ADVISOR Oxygen Saturation 99% 07/25/2024 8:25 AM INBOUND SALES ADVISOR Inhaled Oxygen Concentration - - Weight 56.1 kg (123 lb 10.9 oz) 08/14/2024 2:30 PM CDT Height 165.1 cm (5' 5) 08/14/2024 2:30 PM CDT Body Mass Index 20.58 08/14/2024 2:30 PM CDT Plan of Treatment Health Maintenance Due Date Last Done Comments Cervical Cancer Screening 1981 Hepatitis C Screening 1981 DTaP/Tdap/Td Vaccine (1 - Tdap) 1992 Hepatitis B Screening 09/12/1999 Covid-19 Vaccine ( season) 2024 08/07/2023, 06/24/2021, 09/06/2020 Depression Screening 07/25/2025 07/25/2024, 04/23/2024, 05/30/2023, Additional history exists Regular Well Visit/Exam 18-64 07/25/2025 07/25/2024, 05/30/2023 Breast Cancer Screening-Mammogram 10/13/2025 10/13/2024, 10/13/2024, 09/19/2023, Additional history exists Influenza Vaccine Completed 04/23/2024, , 05/10/2022, Additional history exists HPV Vaccines Aged Out No longer eligi ble based on patient's age to complete this topic Pneumococcal vaccine <65 Aged Out No longer eligible based on patient's age to complete this topic Varicella Vaccines Discontinued Procedures Procedure Name Priority Date/Time Associated Diagnosis Comments SCREENING MAMMOGRAM BILATERAL W JORDON Schedule Routine, Read Routine (OP Routine) 10/13/2024 1:28 PM CDT Breast cancer screening by mammogram HM MAMMOGRAPHY Routine 10/13/2024 10:50 AM CDT from Last 3 Months Results * SCREENING MAMMOGRAM BILATERAL W JORDON (10/13/2024 1:28 PM CDT) Anatomical Region Laterality Modality Breast Bilateral Mammography Mirtha Boyd NP IMG MAMMO PROCEDURES Final Resul t * HM MAMMOGRAPHY (10/13/2024 10:50 AM CDT) Historical Provider MD HEALTH MAINTENANCE Final Result from Last 3 Months Insurance [facility] Member Subscriber Plan / Payer ( fective 2014-Present) Name:Shreya Corey Relation to Subscriber:Self Name:Shreya Corey Payer ID:[id number] (NAIC) Type:MEDICAID RISK OTHER Address: [place] [id number] Care Teams Nutrition Services Manager Relationship Specialty Start Date End Date Mirtha Boyd NP PCP - General Family Medicine 05/02/22
--- OUTSIDE RECORDS SUMMARY | 2024-12-01 13:54 | XMS_ITS | Clinical Summary ---
Author Organization [facility] Address [address] [place] [address] Care Team Providers Care Speech Language Pathologist Travel Name Role Phone Unavailable Primary Care Provider Unavailabl e Source Comments [facility],non-owned Affiliates and Associated Physician Practices is amultiple site organization consisting of ambulatory clinics and hospital sitesin [place], [place], [place] and [place]. This disclosure is being madepursuant to the Care Everywhere program and may not contain all information available regarding this patient. 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
--- OUTSIDE RECORDS SUMMARY | 2024-12-01 13:54 | XMS_ITS | Referral Summary ---
Author Organization [address] Address [address] [place] [id number] Care Team Providers Care New Account Interviewer Name Role Phone Mirtha Boyd NP Primary Care Provider [phone] Encounters Date Type Department Care Team Description 11/04/2024 Orders Only [facility] Primary Care at [address] [phone] Mirtha Boyd NP Spider veins of both lower extremities (Primary Dx) 10/31/2024 Telephone [facility] Primary Care at [address] [phone] Mirtha Boyd NP Recommendation Request (/) 10/13/2024 Results Follow-Up [facility] Primary Care at [address] [phone] Mirtha Boyd NP HM MAMMOGRAPHY from Last 3 Months Allergies No known [...] has returned. She has trialed and failed [id number]-[id number]-[id number] medication including stool softener, MiraLax, and fiber. 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 Gender Identity Not on file Sexual Orientation Not on file Last Filed Vital Signs Vital Sign Reading Time Taken Comments Blood Pressure 107/66 08/14/2024 2:30 PM CDT Pulse 67 08/14/2024 2:30 PM CDT Temperature 36.7 C (98 F) 07/25/2024 8:25 AM EDI MANAGER Respiratory Rate 18 08/10/2023 6:00 PM EDI MANAGER Oxygen Saturation 99% 07/25/2024 8:25 AM EDI MANAGER Inhaled Oxygen Concentration - - Weight 56.1 [...] MAMMOGRAPHY (10/13/2024 10:50 AM CDT) Historical Provider HEALTH MAINTENANCE Final Result from Last 3 Months Insurance [facility] Care Teams New Account Interviewer Relationship Specialty Start Date End Date Mirtha Boyd NP PCP - General Family Medicine 05/02/22
== END 2024-12-01 13:34 | disposition home or self-care (01) ==
LOC: ANHIMG 13:35
PROVIDERS: PCP Physician Assistant; Visit Provider Nurse Practitioner Family
DX: R92.8 Other abnormal and inconclusive findings on diagnostic imaging of breast (principal)
CPT/HCPCS: 77062; 77066; G0279